=== PATIENT | female | born 1955 | race Caucasian/White ===

== ENCOUNTER 2022-09-07 22:08 | Inpatient (IN) | payer MEDICARE, SELFPAY ==
[2022-09-07] MEDS ORDERED: cefTRIAXone (ROCEPHIN) 1 GM VIAL ONE (22:53)
[2022-09-07] MEDS ORDERED: Azithromycin 500 MG VIAL ONE (22:53)
[2022-09-07 23:09] LABS: Mean Corpuscular HGB CONC 32.1 g/dL (32.0-36.0); Mean Corpuscular Hemoglobin 32.6 pg (27.0-31.0); Mean Platelet Volume 9.5 fL (7.4-10.4); Platelet Count 248 10x3/uL (130-400); RBC Distribution Width 11.9 % (11.5-14.5); Red Blood Cell (RBC) Count 3.98 mill/uL (4.20-5.40); White Blood Cell (WBC) Count 12.4 10x3/uL (4.8-10.8)
[2022-09-07 23:27] LABS: ALT (SGPT) 14 U/L (8-55); AST (SGOT) 13 U/L (5-34); Albumin 3.7 g/dL (3.4-4.8); Alkaline Phosphatase 106 U/L (40-110); Anion Gap 15 mmol/L (10-20); BUN (Urea Nitrogen) 12 mg/dL (9.8-20.1); Bilirubin, Total 0.4 mg/dL (0.2-1.2); Calc. Creatinine Clearance 0 mL/min (70-130); Calcium 9.1 mg/dL (7.8-10.44); Carbon Dioxide 22 mmol/L (23-31); Chloride 106 mmol/L (98-107); Estimated GFR 86; Globulin 3.3 g/dL (2.4-3.5); Glucose 120 mg/dL (80-115); Potassium 3.5 mmol/L (3.5-5.1); Sodium 139 mmol/L (136-145)
[2022-09-07 23:37] LABS: Band 6 % (5-11); Lymphocytes 11 % (21-51); MDiff Complete? YES; Macrocytosis SLIGHT = 6-15 cells (100X) (0-5/hpf); Monocytes 8 % (0-10); Neutrophil 75 % (42-75); Ovalocytes SLIGHT = 2-5 cells (100X) (0-1/hpf); Platelet Morphology Comment Appears Adequate
[2022-09-08] MEDS ORDERED: Ipratropium/Albuterol 3 ML NEB NEB PRN (01:15)
[2022-09-08] MEDS ORDERED: Ondansetron ODT 4 MG TAB PO PRN (01:25)
[2022-09-08] MEDS ORDERED: Ondansetron PF 4 MG/2 ML Vial IVP PRN (01:25)
[2022-09-08] MEDS ORDERED: Acetaminophen 650 MG Suppository PR PRN (01:25)
[2022-09-08] MEDS ORDERED: Acetaminophen 325 MG TAB PO PRN (01:25)
[2022-09-08] MEDS ORDERED: methylPREDNISolone Sod Succ/PF 125 MG/2 ML VIAL IVP SCH (01:30)
[2022-09-08 01:48] LABS: SARS-CoV-2 NAA Rapid Test Not Detected (NotDetected)
[2022-09-08 02:49] VITALS: BMI 31.0
[2022-09-08] MEDS: Ipratropium/Albuterol 3 ML NEB NEB SCH ×6 (03:07→19:02)
[2022-09-08 03:24] LABS: Actual Bicarbonate (HCO3a) 26.8 mEq/L (22-28); Base Excess (BEa) -1.6 mEq/L (-2.0 to +3.0); Calcium, Ionized (arterial) 1.19 mmol/L (1.12-1.30); Carboxyhemoglobin (COHb) 1.5 gm% (0.0-3.0); Hemoglobin (Hb) 14.1 g/dL (12.0-16.0); O2 Tension (PaO2), arterial 69.2 mmHg (> 80.0); Potassium - ABG Lab 3.58 mmol/L (3.70-5.30); pH, Arterial 7.26 (7.35-7.45)
[2022-09-08 05:21] LABS: ALV-art Gradient 53.565 mmHg (0-20); CO2 Tension 61.5 mmHg (35.0-45.0); Puncture Site LRA
[2022-09-08 06:01] LABS: #Lymphocytes 1.1 thou/uL (1.20-3.40); #Monocytes 0.7 thou/uL (0.11-0.59); #Neutrophils 11.4 thou/uL (1.40-6.50); %Basophils 0.3 % (0.0-1.0); %Eosinophils 0.3 % (0.0-10.0); %Lymphocytes 8.1 % (21.0-51.0); %Monocytes 5.2 % (0.0-10.0); %Neutrophils 86.2 % (42.0-75.0); Hemoglobin 13.2 g/dL (12.0-16.0); Mean Corpuscular HGB CONC 33.2 g/dL (32.0-36.0); Mean Corpuscular Hemoglobin 33.7 pg (27.0-31.0); Mean Platelet Volume 9.3 fL (7.4-10.4); Platelet Count 245 10x3/uL (130-400); RBC Distribution Width 11.9 % (11.5-14.5); Red Blood Cell (RBC) Count 3.91 mill/uL (4.20-5.40); White Blood Cell (WBC) Count 13.3 10x3/uL (4.8-10.8)
[2022-09-08 06:15] LABS: Anion Gap 14 mmol/L (10-20); BUN (Urea Nitrogen) 11 mg/dL (9.8-20.1); Calc. Creatinine Clearance 102 mL/min (70-130); Carbon Dioxide 23 mmol/L (23-31); Chloride 107 mmol/L (98-107); Estimated GFR 96; Glucose 143 mg/dL (80-115); Potassium 3.6 mmol/L (3.5-5.1); Sodium 140 mmol/L (136-145)
[2022-09-08] MEDS ORDERED: ALPRAZolam 0.25 MG TAB PO PRN (08:13)
[2022-09-08] MEDS: Furosemide 20 MG TAB PO SCH (08:33)
[2022-09-08] MEDS: methylPREDNISolone Sod Succ 40 MG VIAL IVP SCH ×2 (08:33→20:41)
[2022-09-08] MEDS: Pantoprazole 40 MG VIAL IVP SCH (08:33)
[2022-09-08] MEDS: Losartan 25 MG TAB PO SCH (08:33)
[2022-09-08] MEDS: Cefdinir 300 MG CAP PO SCH ×2 (08:33→20:41)
[2022-09-08] MEDS: ALPRAZolam 0.5 MG TAB PO SCH ×2 (08:33→20:41)
[2022-09-08] MEDS ORDERED: LEVOTHYROXINE SODIUM 300 MCG PO SCH (09:00)
[2022-09-08] MEDS ORDERED: Non-Formulary Item 1 EACH (Lovastatin [Lovastatin] 40 MG Tablet) PO SCH (17:00)
[2022-09-08] MEDS: Escitalopram Oxalate 10 mg Tablet PO SCH (20:41)
[2022-09-08] MEDS: Atorvastatin Calcium 10 MG TAB PO SCH (20:41)
[2022-09-08] MEDS ORDERED: CEFTRIAXONE ROCEPHIN IVPB SCH (21:00)
[2022-09-08] MEDS ORDERED: SODIUM CHLORIDE 0.9% IVPB SCH (21:00)
[2022-09-08] MEDS ORDERED: Azithromycin 500 MG in Sodium Chloride 0.9% 250 ML 250 ML IVPB SCH (21:00)
[2022-09-08] MEDS: Pramipexole Di-HCl 0.25 MG TAB PO SCH (21:40)
[2022-09-08] MEDS ORDERED: cefTRIAXone\\ROCEPHIN 1 GM in Sodium Chloride 0.9% 100 ML IVPB SCH (22:00)
[2022-09-09 04:27] LABS: Anion Gap 13 mmol/L (10-20); BUN (Urea Nitrogen) 18 mg/dL (9.8-20.1); Calc. Creatinine Clearance 95 mL/min (70-130); Calcium 9.4 mg/dL (7.8-10.44); Carbon Dioxide 28 mmol/L (23-31); Chloride 102 mmol/L (98-107); Estimated GFR 91; Glucose 165 mg/dL (80-115); Magnesium 1.8 mg/dL (1.6-2.6); Potassium 3.6 mmol/L (3.5-5.1); Sodium 139 mmol/L (136-145)
[2022-09-09 05:07] LABS: Band 9 % (5-11); Hemoglobin 12.6 g/dL (12.0-16.0); Lymphocytes 16 % (21-51); MDiff Complete? YES; Macrocytosis SLIGHT = 6-15 cells (100X) (0-5/hpf); Mean Corpuscular HGB CONC 31.2 g/dL (32.0-36.0); Mean Corpuscular Hemoglobin 31.7 pg (27.0-31.0); Mean Platelet Volume 9.2 fL (7.4-10.4); Monocytes 8 % (0-10); Neutrophil 67 % (42-75); Platelet Count 304 10x3/uL (130-400); Platelet Morphology Comment Appears Adequate; RBC Distribution Width 11.8 % (11.5-14.5); Red Blood Cell (RBC) Count 3.96 mill/uL (4.20-5.40); White Blood Cell (WBC) Count 14.6 10x3/uL (4.8-10.8)
[2022-09-09] MEDS: Levothyroxine 150 MCG TAB PO SCH (05:52)
[2022-09-09] MEDS: Ipratropium/Albuterol 3 ML NEB NEB SCH ×4 (07:04→19:32)
[2022-09-09] MEDS: Losartan 25 MG TAB PO SCH (08:47)
[2022-09-09] MEDS: Cefdinir 300 MG CAP PO SCH ×2 (08:47→20:50)
[2022-09-09] MEDS: Furosemide 20 MG TAB PO SCH (08:47)
[2022-09-09] MEDS: ALPRAZolam 0.5 MG TAB PO SCH ×2 (08:47→20:50)
[2022-09-09] MEDS: methylPREDNISolone Sod Succ 40 MG VIAL IVP SCH ×2 (08:48→20:50)
[2022-09-09] MEDS: Pantoprazole 40 MG VIAL IVP SCH (08:48)
[2022-09-09] MEDS: Atorvastatin Calcium 10 MG TAB PO SCH (20:50)
[2022-09-09] MEDS: Escitalopram Oxalate 10 mg Tablet PO SCH (20:50)
[2022-09-09] MEDS: Pramipexole Di-HCl 0.25 MG TAB PO SCH (20:50)
[2022-09-10 04:21] LABS: Anion Gap 14 mmol/L (10-20); BUN (Urea Nitrogen) 25 mg/dL (9.8-20.1); Calc. Creatinine Clearance 85 mL/min (70-130); Calcium 9.4 mg/dL (7.8-10.44); Carbon Dioxide 27 mmol/L (23-31); Chloride 103 mmol/L (98-107); Estimated GFR 79; Glucose 144 mg/dL (80-115); Magnesium 1.9 mg/dL (1.6-2.6); Potassium 3.7 mmol/L (3.5-5.1); Sodium 140 mmol/L (136-145)
[2022-09-10 04:32] LABS: Band 1 % (5-11); Hemoglobin 12.9 g/dL (12.0-16.0); Lymphocytes 13 % (21-51); MDiff Complete? YES; Macrocytosis MODERATE=16-30 cells (100X) (0-5/hpf); Mean Corpuscular HGB CONC 31.2 g/dL (32.0-36.0); Mean Corpuscular Hemoglobin 31.3 pg (27.0-31.0); Mean Platelet Volume 9.1 fL (7.4-10.4); Metamyelocyte 1 % (0-0); Monocytes 1 % (0-10); Myelocyte 1 % (0-0); Neutrophil 83 % (42-75); Ovalocytes SLIGHT = 2-5 cells (100X) (0-1/hpf); Platelet Count 352 10x3/uL (130-400); Platelet Morphology Comment Appears Adequate; RBC Distribution Width 11.8 % (11.5-14.5); Red Blood Cell (RBC) Count 4.12 mill/uL (4.20-5.40); White Blood Cell (WBC) Count 17.4 10x3/uL (4.8-10.8)
[2022-09-10] MEDS: Levothyroxine 150 MCG TAB PO SCH (06:14)
[2022-09-10] MEDS: Ipratropium/Albuterol 3 ML NEB NEB SCH ×4 (08:15→18:42)
[2022-09-10] MEDS: Cefdinir 300 MG CAP PO SCH ×2 (08:58→21:20)
[2022-09-10] MEDS: methylPREDNISolone Sod Succ 40 MG VIAL IVP SCH ×2 (08:58→21:20)
[2022-09-10] MEDS: Furosemide 20 MG TAB PO SCH (08:58)
[2022-09-10] MEDS: Losartan 25 MG TAB PO SCH (08:58)
[2022-09-10] MEDS: ALPRAZolam 0.5 MG TAB PO SCH ×2 (08:58→21:20)
[2022-09-10] MEDS ORDERED: methylPREDNISolone Sod Succ 40 MG VIAL IVP SCH (09:00)
[2022-09-10] MEDS: Pantoprazole 40 MG VIAL IVP SCH (09:06)
[2022-09-10] MEDS ORDERED: CETIRIZINE HCL PO SCH (10:15)
[2022-09-10] MEDS ORDERED: PSEUDOEPHEDRINE PO SCH (10:15)
[2022-09-10] MEDS ORDERED: [UNRECOGNIZED DRUG - OTHER] PO SCH (10:15)
[2022-09-10] MEDS: Azithromycin 250 MG TAB PO SCH (11:24)
[2022-09-10] MEDS ORDERED: Loratadine 10 MG TAB PO SCH (11:30)
[2022-09-10] MEDS: guaiFENesin/Codeine 200 mg/20 mg 10 ml Cup PO PRN (11:36)
[2022-09-10] MEDS: Escitalopram Oxalate 10 mg Tablet PO SCH (21:20)
[2022-09-10] MEDS: Atorvastatin Calcium 10 MG TAB PO SCH (21:20)
[2022-09-10] MEDS: Pramipexole Di-HCl 0.25 MG TAB PO SCH (21:20)
[2022-09-11] MEDS: guaiFENesin/Codeine 200 mg/20 mg 10 ml Cup PO PRN (01:35)
[2022-09-11] MEDS: Levothyroxine 150 MCG TAB PO SCH (05:23)
[2022-09-11] MEDS: Ipratropium/Albuterol 3 ML NEB NEB SCH ×3 (07:08→14:46)
[2022-09-11 07:16] LABS: Anion Gap 12 mmol/L (10-20); BUN (Urea Nitrogen) 24 mg/dL (9.8-20.1); Calc. Creatinine Clearance 98 mL/min (70-130); Calcium 8.8 mg/dL (7.8-10.44); Carbon Dioxide 30 mmol/L (23-31); Chloride 100 mmol/L (98-107); Estimated GFR 94; Glucose 127 mg/dL (80-115); Magnesium 1.9 mg/dL (1.6-2.6); Potassium 3.7 mmol/L (3.5-5.1); Sodium 138 mmol/L (136-145)
[2022-09-11 07:29] LABS: Hemoglobin 13.4 g/dL (12.0-16.0); Mean Corpuscular HGB CONC 33.8 g/dL (32.0-36.0); Mean Corpuscular Hemoglobin 33.9 pg (27.0-31.0); Mean Platelet Volume 8.7 fL (7.4-10.4); Platelet Count 313 10x3/uL (130-400); RBC Distribution Width 11.9 % (11.5-14.5); Red Blood Cell (RBC) Count 3.95 mill/uL (4.20-5.40); White Blood Cell (WBC) Count 15.8 10x3/uL (4.8-10.8)
[2022-09-11] MEDS ORDERED: Loratadine 10 MG TAB PO SCH (09:00)
[2022-09-11] MEDS ORDERED: Fluticasone Propionate Nasal Spray 16 gm Bottle NASAL SCH (09:00)
[2022-09-11 09:35] LABS: Band 6 % (5-11); Lymphocytes 16 % (21-51); MDiff Complete? YES; Monocytes 4 % (0-10); Myelocyte 1 % (0-0); Neutrophil 73 % (42-75); Platelet Morphology Comment Appears Adequate; Polychromasia SLIGHT = 2-3 cells (100X) (0-2/hpf)
[2022-09-11] MEDS: ALPRAZolam 0.5 MG TAB PO SCH (09:42)
[2022-09-11] MEDS: Losartan 25 MG TAB PO SCH (09:42)
[2022-09-11] MEDS: Cefdinir 300 MG CAP PO SCH (09:42)
[2022-09-11] MEDS: Furosemide 20 MG TAB PO SCH (09:43)
[2022-09-11] MEDS: methylPREDNISolone Sod Succ 40 MG VIAL IVP SCH (09:43)
[2022-09-11] MEDS: Pantoprazole 40 MG VIAL IVP SCH (09:44)
[2022-09-11] MEDS: Azithromycin 250 MG TAB PO SCH (11:32)
[2022-09-11 15:55] VITALS: BP 132/73; TEMP 97.6
== END 2022-09-11 17:53 | disposition home or self-care (01) | DRG 189 ==
LOC: ERS 22:08 → ERHOLD 09-08 01:06 → IMCU/EMU 09-08 02:21 → T4-B 09-10 13:23
PROVIDERS: ADMIT Student in an Organized Health Care Education/Training Program; ATTEND Hospitalist
PROC: 4A033R1 Measurement of Arterial Saturation, Peripheral, Percutaneous Approach (ICD-10-PCS; principal; 2022-09-08)
DX: J96.21 Acute and chronic respiratory failure with hypoxia (principal); J44.1 Chronic obstructive pulmonary disease with (acute) exacerbation; E87.20 Acidosis, unspecified; Z20.822 Contact with and (suspected) exposure to COVID-19; I10 Essential (primary) hypertension; K21.9 Gastro-esophageal reflux disease without esophagitis; F17.210 Nicotine dependence, cigarettes, uncomplicated; I27.20 Pulmonary hypertension, unspecified; E78.5 Hyperlipidemia, unspecified; F41.9 Anxiety disorder, unspecified; I25.10 Atherosclerotic heart disease of native coronary artery without angina pectoris; E03.9 Hypothyroidism, unspecified; Z86.16 Personal history of COVID-19; Z79.899 Other long term (current) drug therapy; Z79.890 Hormone replacement therapy; Z90.49 Acquired absence of other specified parts of digestive tract
CPT/HCPCS: 36415; 36600; 71045; 80048; 80053; 82805; 83605; 83735; 83880; 84484; 85025; 87040; 93005; 93306; 94640; 94660; 94760; J0456; J0696; J1650; J2920; J2930; J3490; J7611; J7620

== ENCOUNTER 2022-11-20 14:15 | Outpatient (CLI) | payer MEDICARE | END 2022-11-20 14:16 | disposition home or self-care (01) | LOC: BICMAMMO 14:15 | PROVIDERS: ATTEND Nurse Practitioner Family | DX: Z12.31 Encounter for screening mammogram for malignant neoplasm of breast (principal) | CPT/HCPCS: 77063; 77067 ==